=== PATIENT | male | born 2000 | race Caucasian/White ===

== ENCOUNTER 2023-06-15 01:29 | Emergency (ER) | payer OTHER ==
[~2023-06-15] VITALS: Ht 172.7 cm; Wt 63.5 kg
[2023-06-15] MEDS ORDERED: IV NORMAL SALINE 1000 ML BAG IV ONE (02:30)
--- NOTE | 2023-06-15 02:45 | NUR ---
Patient out of unit for ct scan via [place] with no distress noted.
[2023-06-15 02:52] LABS: *BILIRUBIN,URIN NEGATIVE (NEGATIVE); *BLOOD, URINE NEGATIVE (NEGATIVE); *CLARITY,URINE CLEAR (CLEAR); *COLOR,URINE YELLOW (YELLOW); *KETONES,URINE NEGATIVE (NEGATIVE); *UROBILINOGEN,URINE 0.2 E.U./dl (NORMAL); LEUKOCYTE ESTERASE ,URINE NEGATIVE (NEGATIVE); NITRITE, URINE NEGATIVE (NEGATIVE); UGLUCOSE NEGATIVE (NEGATIVE)
[2023-06-15 02:52] LABS: HEMATOCRIT 46.3 % (36.7-47.1); MEAN CORPUSCULAR HEMOGLOBIN 28.9 uug (23.8-33.4); MEAN CORPUSCULAR VOLUME 86.7 fL (73.0-96.2); PLATELET COUNT (AUTO) 191 K/uL (152-348)
--- NOTE | 2023-06-15 03:00 | NUR ---
Patient back from ct scan with no distress noted.
[2023-06-15 03:08] LABS: *AMPHETAMINE, URINE NEGATIVE (NEGATIVE); *CANNABINOID, URINE POSITIVE (NEGATIVE); *COCCAINE, URINE NEGATIVE (NEGATIVE); *PHENCYCLIDINE SCREEN,URINE NEGATIVE (NEGATIVE)
[2023-06-15 03:10] LABS: ALANINE AMINOTRANSFERASE 21 U/L (16-63); ALKALINE PHOSPHATASE 78 U/L (50-136); ASPARTATE AMINOTRANSFERASE 20 U/L (15-37); BILIRUBIN,DIRECT 0.3 mg/dL (0.0-0.2); BILIRUBIN,TOTAL 1.4 mg/dL (0.2-1.0); CARBON DIOXIDE 20 mmol/L (21-32); CHLORIDE 104 mmol/L (98-107); CREATININE 1.1 mg/dL (0.6-1.3); TOTAL PROTEIN, SERUM 7.7 g/dL (6.4-8.2); UREA NITROGEN, BLOOD 14 mg/dL (7-18)
[2023-06-15 03:13] LABS: POTASSIUM 2.8 mmol/L (3.5-5.1)
[2023-06-15 03:17] LABS: THYROID STIMULATING HORMONE 2.577 mIU/mL (0.358-3.740)
[2023-06-15] MEDS ORDERED: MAGNESIUM SULFATE/D5W 200 ML ONE (03:27)
[2023-06-15] MEDS: MAGNESIUM SULFATE/D5W 100 ML IV SCH ×2 (03:29→04:11)
[2023-06-15] MEDS ORDERED: POTASSIUM CHLORIDE 200 ML ONE (04:38)
[2023-06-15] MEDS: POTASSIUM CHLORIDE 50 ML IV SCH ×4 (05:00→06:30)
--- NOTE | 2023-06-15 06:25 | NUR ---
Patient awake, A/Ox3 with no distress noted.
[2023-06-15] MEDS ORDERED: ONDANSETRON 4 MG/2 ML VIAL IV ONE (06:45)
[2023-06-15] MEDS ORDERED: ONDANSETRON 4 MG/2 ML VIAL ONE (06:46)
--- NOTE | 2023-06-15 06:49 | NUR ---
Patient had two episode of N/V but refused zofran ivp.
--- NOTE | 2023-06-15 06:50 | NUR ---
2nd bag of KCL IVPB is on hold until repeat BMP is result.
[2023-06-15] MEDS ORDERED: KETAMINE HCL 500 MG/10 ML INJ IM ONE (07:15)
[2023-06-15] MEDS ORDERED: KETAMINE HCL 200 MG/20 ML VIAL ONE (07:20)
[2023-06-15 07:25] LABS: POTASSIUM 3.3 mmol/L (3.5-5.1)
--- NOTE | 2023-06-15 07:25 | NUR ---
Patient resting in bed, alert oriented x4 with friend at bedside. Updated on plan of care, IV fluids infusing as per order, no s/s of any distress noted at this time will continue to monitor.
--- NOTE | 2023-06-15 08:07 | NUR ---
hl removed asi given, remains stable for discharge.
[2023-06-15 08:25] VITALS: BP 118/46; O2SAT 94
== END 2023-06-15 08:25 | disposition home or self-care (01) ==
LOC: ER 01:33
DX: G93.40 Encephalopathy, unspecified (principal); R51.9 Headache, unspecified; R07.89 Other chest pain
CPT/HCPCS: 80076; 80048 ×2; 81003; 84443; 85025; 84484; 36415; 93005 ×2; 70450; 99285; 96361; 96365; 96366; 96372; 80320; 80307; J3475; J2405; J3480; J7040 ×2; A4663; G0480